=== PATIENT | female | born 1950 | race American Indian/Alaskan Native ===

== ENCOUNTER 2019-11-24 14:29 | Outpatient (CLI) | payer MEDICARE ==
--- NOTE | 2019-11-24 15:13 | XRay Report ---
CHEST 2 VIEWS INDICATION: R06.2 WHEEZING/J44.9 CHRONIC OBSTRUCTIVE ASTHMA/[id number]. COMPARISON: None FINDINGS: Support devices: None. Heart: Within normal limits. Lungs/pleura: No acute air space or interstitial disease. No pneumothorax. Additional findings: None. IMPRESSION: No acute findings. Signer Name: Trevor Abel Jr, MD Signed: 11/24/2019 3:09 PM Workstation Name: [id number]
== END 2019-11-24 14:30 | disposition home or self-care (01) ==
LOC: XRAY 14:29
PROVIDERS: ATTEND Family Medicine
DX: R06.2 Wheezing (principal); R05 Cough; J44.9 Chronic obstructive pulmonary disease, unspecified
CPT/HCPCS: 71046